=== PATIENT | female | born 1940 | race Caucasian/White ===

== ENCOUNTER → 2020-09-11 11:04 | Outpatient (CLI) | payer MEDICARE, SELFPAY ==
--- NOTE | 2020-09-11 11:13 | VDUE_ITS ---
Reason For Study: ESRD, Pre op Right Arm Left Arm Right Cephalic Vein at the wrist measures Left Cephalic Vein at the wrist measures 0.12 x 0.11 cm. 0.12 x 0.13 cm. Right Cephalic Vein in the forearm measures Left Cephalic Vein in the forearm measures 0.07 x 0.09 cm. 0.13 x 0.13 cm. Right Cephalic Vein below antecub measures Left Cephalic Vein below antecub measures 0.12 x 0.11 cm. 0.23 x 0.23 cm. Right Cephalic Vein above antecub measures Left Cephalic Vein above antecub measures 0.24 x 0.24 cm. 0.23 x 0.23 cm. Right Cephalic Vein mid bicep measures 0.20 Left Cephalic Vein at mid bicep measures x 0.20 cm. 0.15 x 0.16 cm. Right Cephalic Vein at the shoulder measures Left Cephalic Vein at the shoulder measures 0.23 x 0.24 cm. 0.25 x 0.24 cm. Right Basilic Vein at the origin measures Basilic vein at origin measures 0.32 x 0.30 0.26 x 0.24 cm. cm. Right Basilic Vein mid bicep measures 0.21 x Basilic vein at bicep measures 0.18 x 0.18 0.21 cm. cm. Right Basilic Vein above antecub measures Basilic vein above antecub measures 0.18 x 0.21 x 0.20 cm. 0.18 cm. Right Brachial artery measures 0.28 x 0.28 Left Brachial artery measures 0.27 x 0.27 cm cm with a velocity of 116.6 cm/sec. with a velocity of 111.1 cm/sec. Right Radial artery measures 0.18 x 0.17 cm Left Radial artery measures 0.16 x 0.16 cm with a velocity of 81.9 cm/sec. with a velocity of 78.3 cm/sec. VL/Saphenous Vein Mapping, Bilat Interpretation Summary Patent and compressible bilateral upper extremity cephalic and basilic veins. The dimensions of both upper extremity cephalic and basilic veins throughout ap pear to be small to even diminutive. Bilateral brachial and radial arteries have normal flow rates but also smaller than normal diameters Ordering Physician: Lisseth Tovar Referring Physician: Bong Vaughn MD Performed By: Aretha Lugo RVT ?
== END ==
PROVIDERS: PCP Family Medicine; Referring Provider Student in an Organized Health Care Education/Training Program; Visit Provider Student in an Organized Health Care Education/Training Program
DX: Z01.818 Encounter for other preprocedural examination (principal); N18.6 End stage renal disease
CPT/HCPCS: 93970; 93985

== ENCOUNTER 2020-10-02 09:10 | Day surgery (SDC) | payer MEDICARE, SELFPAY ==
[2020-10-02] VITALS (9 sets, daily range): BP systolic 92–153; BP diastolic 52–86; PULSE 77–108; RESP 14–16; TEMP 36.3–36.9; O2SAT 93–97; BMI 31.5
--- NOTE | 2020-10-02 09:22 | EKG12_ITS ---
Test Reason : PRE-OP Blood Pressure : / mmHG Vent. Rate : 107 BPM Atrial Rate : 094 BPM P-R Int : 000 ms QRS Dur : 138 ms QT Int : 358 ms P-R-T Axes : 000 -45 238 degrees QTc Int : 477 ms Atrial fibrillation Right bundle branch block Left anterior fascicular block Bifascicular block Abnormal ECG Confirmed by DYAN MAZA, NATHALIA ([id number]), non linear editor AL JAEGER ([id number]) on 10/08/2020 8:58:30 AM Referred By: Pk Freeman Confirmed By:NATHALIA ZAIDI MD
[2020-10-02] MEDS: 0.9% Normal Saline 1,000 ML 15 ML IV (09:30)
[2020-10-02 09:54] LABS: Hematocrit 36.4 % (37-47); Mean Corp Hgb Conc 30.2 g/dL (32-36); Mean Corpuscular Hgb 30.9 pg (27.0-32.0); Mean Corpuscular Volume 102.2 fL (81-99); Mean Platelet Vol. 10.8 fl (6.2-12.0); POSITIVE MORPHOLOGY YES; Platelet Count 313 K/mm3 (150-450); RBC Distribution Width CV 22.1 % (11.6-14.6); RBC Distribution Width SD 81.2 fl (35.1-43.9); Red Blood Count 3.56 M/mm3 (4.2-5.4); White Blood Count 7.2 K/mm3 (4.4-11.0)
[2020-10-02 09:58] LABS: Scan Indicated on CBC? Y/N YES- FLAGS NOTED
[2020-10-02 10:06] LABS: Anion Gap 5 (5-15); BUN 20 mg/dL (7-18); Calcium,Total 9.2 mg/dL (8.5-10.1); Chloride 102 mmol/L (98-107); Creatinine, Serum 3.36 mg/dL (0.55-1.02); EST Glomerular Filtration Rate 14 mL/min (>60); Est Glom Filt Rate - Afr Amer 17 mL/min (>60); Estimated Creatinine Clearance 10.21 ml/min; Glucose 100 mg/dL (74-106); Potassium 3.6 mmol/L (3.5-5.1); Sodium Level 140 mmol/L (136-145)
--- NOTE | 2020-10-02 10:26 | HP.PCM_ITS ---
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 Medical History (Updated 09/16/20 @ 13:[address] Pk Freeman MD) Afib Hypothyroid Presence of Watchman left atrial appendage closure device Surgical History (Updated 09/16/20 @ 13:09 by Ginny Castle) S/P bilateral hip replacements S/P laparoscopic cholecystectomy Family History (Updated 09/16/20 @ 13:10 by Ginny Castle) Mother Diabetes Heart disease Father Diabetes Heart disease Brother Kidney disease Social History (Updated 09/16/20 @ 13:10 by Ginny Caslte) Smoking Status: Never smoker alcohol intake: never HPI HPI HPI: PAULA NAILS, is a 80 F who presents to the office today for surgical consultation regarding creation of arteriovenous hemodialysis fistula. The patient is referred by Dr. Lisseth Tovar MD and a written copy my surgical consult recommendations will return to him. The patient is accompanied by her sonogram. She was in a wheelchair. Both lower extremities are wrapped. Apparently she has diffuse soft tissue swelling and weeping. She is right arm dominant. Is not had any previous bilateral upper extremity surgery. She has had multiple hospitalizations and IVs. She currently is being dialyzed via a tunneled right internal jugular dialysis catheters. Those have been in place she thinks for approximately 2 months. She is not on any anticoagulant. September 11, 2020 Reason For Study: ESRD, Pre op Right Arm Left Arm Right Cephalic Vein at the wrist measures Left Cephalic Vein at the wrist measures 0.12 x 0.11 cm. 0.12 x 0.13 cm. Right Cephalic Vein in the forearm measures Left Cephalic Vein in the forearm measures 0.07 x 0.09 cm. 0.13 x 0.13 cm. Right Cephalic Vein below antecub measures Left Cephalic Vein below antecub measures 0.12 x 0.11 cm. 0.23 x 0.23 cm. Right Cephalic Vein above antecub measures Left Cephalic Vein above antecub measures 0.24 x 0.24 cm. 0.23 x 0.23 cm. Right Cephalic Vein mid bicep measures 0.20 Left Cephalic Vein at mid bicep measures x 0.20 cm. 0.15 x 0.16 cm. Right Cephalic Vein at the shoulder measures Left Cephalic Vein at the shoulder measures 0.23 x 0.24 cm. 0.25 x 0.24 cm. Right Basilic Vein at the origin measures Basilic vein at origin measures 0.32 x 0.30 0.26 x 0.24 cm. cm. Right Basilic Vein mid bicep measures 0.21 x Basilic vein at bicep measures 0.18 x 0.18 0.21 cm. cm. Right Basilic Vein above antecub measures Basilic vein above antecub measures 0.18 x 0.21 x 0.20 cm. 0.18 cm. Right Brachial artery measures 0.28 x 0.28 Left Brachial artery measures 0.27 x 0.27 cm cm with a velocity of 116.6 cm/sec. with a velocity of 111.1 cm/sec. Right Radial artery measures 0.18 x 0.17 cm Left Radial artery measures 0.16 x 0.16 cm with a velocity of 81.9 cm/sec. with a velocity of 78.3 cm/sec. VL/Saphenous Vein Mapping, Bilat Interpretation Summary Patent and compressible bilateral upper extremity cephalic and basilic veins. The dimensions of both upper extremity cephalic and basilic veins throughout appear to be small to even diminutive. Bilateral brachial and radial arteries have normal flow rates but also smaller than normal diameters Ordering Physician: Lisseth Tovar Referring Physician: Bong Vaughn MD Performed By: Aretha Lugo RVT ? ROS General General: Yes weight change and fatigue; No appetite, colon cancer, breast cancer or weakness HEENT HEENT: No difficulty swallowing, eye injury, eye surgery, swollen glands or hoarseness Endo Endocrine: Yes thyroid disease and diabetes mellitus; No thyroid cancer, Hair loss, heat intolerance or cold intolerance Skin Skin: No rash or changing moles Breast Breast: No left breast lump, right breast lump, nipple discharge, breast pain, abnormal mammogram, abnormal US or breast enlargement Musc Musculoskeletal: Yes arthritis; No back problems, rheumatoid arthritis, gout or joint pain Cardio Cardiovascular: Yes heart disease and atrial fibrillation; No murmur, pacemaker, high blood pressure, heart attack, heart stent, palpitations, shortness of breat with exertion or chest pain Psych Psychiatric: No depression, anxiety or hearing voices Resp Respiratory: No shortness of breath, No sleep apnea, No cough, No COPD, No asthma, No emphysema and No wheezing Gastro Gastrointestinal: No abdominal pain, No nausea or vomiting, No diarrhea, No constipation, No blood in stool, No acid reflux, Yes hemorrhoids, No ulcers, Yes gallbladder problem and No black,tarry stools Gabe Hematologic: No blood thinners, No blood disorders, No bleeding, No anemia and No blood clots Neuro Neurologic: No weakness Exam Const General: cooperative, comfortable and no acute distress Nutritional Appearance: obese Orientation: alert and awake Eyes General: appearance normal, both eyes and all related structures Neck Neck: normal visual inspection Resp Other: Reasonable inspiratory excursion, scattered quiet wheeze bilateral, no rales Cardio Rate: regular rate Rhythm: regular rhythm GI Other: Great, nontender, Skin Other: Bilateral lower extremity compression dressings in place Neuro Cognition: normal cognition Extrem Other: Left upper extremity: The left forearm cephalic vein is diminutive as noted in the vein mapping. I inspected this area with ultrasound today. Left radial pulses 2+. Left upper arm cephalic vein is approximately 3 mm. It is reasonably close to the dermal surface. Left brachial pulses 2-3+. Psych Appearance: grossly normal COVID (Procedure Consent) Procedure Criteria Procedure Criteria: Yes Elective The surgeon/proceduralist and patient have discussed in detail the risk of exposure to and/or potential harm posed by the COVID-19 virus with having a surgery/procedure at this time versus the risk of delaying the surgery/procedure. It is not possible to know either the risk of delaying the surgery or procedure or chance of getting an infection with perfect accuracy, but a joint decision was made between the patient and the surgeon/proceduralist to proceed at this time with the scheduled surgery/procedure as indicated on the consent form. Assessment and Plan Assessment and Plan (1) Chronic renal failure, stage 4 (severe): Status: Chronic Comment: I recommended the patient in the left upper extremity cephalic to brachial arteriovenous hemodialysis fistula creation. I have described the technique, benefit, risk and alternatives. No guarantees of success are being offered. The patient's arterial and venous structures are quite small. She is 80 years of age. By report she has atrial fibrillation with a diminished ejection fraction. There have been no recent problems with relative hypotension. I have described to the patient and to the son that hypotension will cause a fistula to thrombosed. It still seems reasonable to offer her attempt to creating a fistula in an effort to get her right IJ catheters removed. She has had an opportunity to ask and have questions answered. We will schedule procedure at her discretion. Copy: Dr. Tovar and Dr. Bong Freeman M.D., F.A.C.S. Coding Level of Care Code 10658 Diagnoses Chronic renal failure, stage 4 (severe) N18.4 I have re-examined the patient. There are no clinical changes since date of exam. Pk Freeman M.D., F.A.C.S.
--- NOTE | 2020-10-02 11:00 | EX.PCM.DISCH ---
Discharge Instructions Procedure Fistula Diet Discharge Diet: Renal Diet Activity Discharge Activity: May Not Drive (for 2-3 days or while taking narcotic pain medications.), May Shower and May Take a Tub Bath (in 5 days.) Lifting Restrictions: 5 pounds Keep extremity elevated above heart level: - (Keep arm elevated above the heart level for 3 days.) Dressing / Incision Call your doctor if your incision/area has: Continuous Slow Oozing, Sudden Increased Bleeding (apply pressure and call your doctor.), Increased Pain/ Swelling, Increased Redness and Foul Smelling Discharge Call your doctor if you observe: Fever of 101 or Higher Suture Line Care: Avoid Pulling/Pushing and Avoid Pinching/Bending Cleanse incision/area with: Keep Dressing Clean & Dry Additional Dressing/Incision Instructions:: Change or remove dressing in one day. May protect with a gauze bandaid. Follow Up Care Please Follow Up With: Pk Freeman MD When: Call [phone] to make an appointment for suture removal and follow up in 1 week. Test Results: Tylenol can be used for discomfort. Discharge Plan Admission Attending Provider: Pk Freeman Primary Care Provider: Bong Vaughn Discharge Orders/Prescriptions Prescriptions: No Action midodrine 10 mg tablet 10 mg PO TID RF: 0 levothyroxine [Synthroid] 75 mcg tablet 75 mcg PO DAILY RF: 0 atorvastatin 40 mg tablet 40 mg PO DAILY RF: 0 aspirin 81 mg Tablet 81 mg PO DAILY RF: 0
[2020-10-02] MEDS: Lidocaine 1% (30 ml sdv) 30 ML Vial (11:22)
[2020-10-02] MEDS: Heparin Injection (Vial) 5,000 UNIT/ML VIAL 5000 UNIT (11:22)
[2020-10-02] MEDS: Bupivacaine Mpf 0.5% 30 ML VIAL (11:22)
--- NOTE | 2020-10-02 12:20 | PCM.OPRPT ---
Problems Associated Problem List Diagnoses (1) Chronic renal failure, stage 4 (severe): Report of Operation Date of Procedure: 10/02/20 Pre-Operative Diagnosis: Stage IV chronic renal insufficiency Post-Operative Diagnosis: Same Surgery/Procedure Performed:: Transposition left upper arm cephalic vein to brachial artery arteriovenous hemodialysis fistula creation Description of Surgical Findings:: Timeout and informed consent was obtained. 80-year-old female was taken to the operating placed on the table underwent monitored anesthesia care. Clean procedure no antibiotics required. The left upper extremity was sterilely prepped and draped. 1% lidocaine mixed 50-50 with 0.5% Marcaine was used as well static. Ultrasound mapping of the left upper arm cephalic vein had been performed. Local was instilled. An oblique incision was made in the left upper arm sharp blunt dissection was used to identify the cephalic vein. At the antecubital space it was quite fixed likely due to previous blood draws. I then had to dissect more proximally. Side branches were secured with hemoclips. 8 cm of vein and secured side branches were needed with hemoclips. This allowed for enough mobilization and I also did some subcutaneous dissection to allow for better positional lie. Sharp and blunt dissection used to identify the brachial artery and it was mobilized also for several centimeters. Patient received 7000's of heparin. Peripheral vascular clamps were placed on the brachial artery. A 11 blade was used to make an arteriotomy which was extended with Keith scissors. A end-to-side venous to arterial anastomosis was created with running 7-0 Prolene. Prior to completion there is good antegrade retrograde flow. A single repair suture of 7-0 Prolene was required. Good hemostasis was achieved. Blood loss has been minimal. There is good positional lie of the vein. The hand was viable at the completion with a 2+ radial pulse. The wound was closed with a deep layer of interrupted 3-0 Vicryl. The skin edges were approximated running septic or 4-0 Monocryl. Steri-Strips Telfa tape dressings applied. Sponge and instrument and needle counts were reported to the surgeon to be correct. Specimen none. Drains none. Blood loss minimal. The patient was taken to the recovery area in satisfactory addition without apparent complication Pk Freeman M.D., F.A.C.S. Surgeon: Pk Freeman Type of Anesthesia: Local MAC Anesthesiologist: Onel Veras
== END 2020-10-02 14:32 | disposition home or self-care (01) ==
LOC: SDC 09:10 → AC 09:11
PROVIDERS: PCP Family Medicine; Referring Provider Surgery; Visit Provider Surgery
PROC: (CPT 36821; principal; 2020-10-02 10:45)
DX: E11.22 Type 2 diabetes mellitus with diabetic chronic kidney disease (principal); N18.4 Chronic kidney disease, stage 4 (severe); I27.20 Pulmonary hypertension, unspecified; M79.89 Other specified soft tissue disorders; I48.91 Unspecified atrial fibrillation; E03.9 Hypothyroidism, unspecified; E66.9 Obesity, unspecified; Z79.82 Long term (current) use of aspirin; Z79.890 Hormone replacement therapy; Z79.899 Other long term (current) drug therapy; Z99.2 Dependence on renal dialysis; Z96.643 Presence of artificial hip joint, bilateral
CPT/HCPCS: 01844; 36821; 80048; 85027; 93005; J7030; J2405

== ENCOUNTER 2021-03-17 17:59 | Outpatient (CLI) | payer MEDICARE, SELFPAY | END 2021-03-17 23:59 | disposition short-term general hospital (02) | PROVIDERS: PCP Family Medicine; Visit Provider Dermatology | DX: L08.9 Local infection of the skin and subcutaneous tissue, unspecified (principal) | CPT/HCPCS: 87070; 87101; 87205 ==

== ENCOUNTER → 2021-05-26 | Outpatient (CLI) | payer MEDICARE, SELFPAY | END | disposition home or self-care (01) | PROVIDERS: PCP Family Medicine; Visit Provider Dermatology | DX: L08.9 Local infection of the skin and subcutaneous tissue, unspecified (principal) | CPT/HCPCS: 87015; 87070; 87101; 87116; 87176; 87205; 87206 ==

== ENCOUNTER → 2023-03-17 | Outpatient (CLI) | payer MEDICARE, SELFPAY | END | disposition home or self-care (01) | PROVIDERS: PCP Family Medicine; Visit Provider Podiatrist Foot & Ankle Surgery | DX: L02.611 Cutaneous abscess of right foot (principal) | CPT/HCPCS: 87070; 87075; 87077; 87101; 87186; 87205 ==